=== PATIENT | male | born 1975 | race Hispanic/Latino ===

== ENCOUNTER 2020-05-28 15:30 | Inpatient (IN) | payer OTHER, SELFPAY ==
[~2020-05-28] VITALS: Ht 170.2 cm; Wt 83.9 kg
[2020-05-28 16:28] LABS: BASOPHILS % (AUTO) 0.4 % (0.0-5.0); EOSINOPHILS % (AUTO) 1.1 % (0.0-8.0); HEMATOCRIT 37.7 % (42-54); MEAN CORPUSCULAR HEMOGLOBIN 33.2 pg (27.0-33.0); MEAN CORPUSCULAR HGB CONC 34.5 g/dL (32.0-36.0); MEAN CORPUSCULAR VOLUME 96.4 fL (79-99); NEUTROPHILS % (AUTO) 74.7 % (40.0-77.0); PLATELET COUNT (AUTO) 415 K/uL (130-400); RED BLOOD CELL COUNT(AUTO) 3.91 MIL/uL (4.50-6.20); RED CELL DISTRIBUTION WIDTH 12.8 % (11.0-15.5); WHITE BLOOD COUNT (AUTO) 11.3 K/uL (4.8-10.8)
[2020-05-28 16:48] LABS: ALBUMIN 3.1 g/dL (3.5-5.0); BILIRUBIN,TOTAL 0.6 mg/dL (0.2-1.0); CREATININE 1.3 mg/dL (0.5-1.5); POTASSIUM 4.6 mmol/L (3.5-5.1); TOTAL PROTEIN, SERUM 8.9 g/dL (6.0-8.3)
[2020-05-28] MEDS ORDERED: 0.9%NACL 1000ML 1,000 ML IV ONE ×2 (17:39→21:27)
[2020-05-28] MEDS ORDERED: ZOSYN 3.375GM+NS 50ML 50 ML IV ONE (17:40)
[2020-05-28] MEDS ORDERED: MORPHINE 4 MG SYG ONE (17:40)
[2020-05-28] MEDS ORDERED: ONDANSETRON 4MG INJ ONE (17:40)
[2020-05-28] MEDS ORDERED: INSULIN HUMULIN R 100 UNIT/ML 3ML ONE ×2 (17:41→21:48)
[2020-05-28] MEDS ORDERED: IOHEXOL-350 75 ML VIAL IV ONE (17:51)
[2020-05-28] MEDS ORDERED: VANCOMYCIN 1G/250ML KIT 250 ML IV ONE (19:12)
[2020-05-28] MEDS ORDERED: ACETAMINOPHEN 325 MG TAB PO PRN ×2 (21:00)
[2020-05-28] MEDS ORDERED: VANCOMYCIN PROTOCOL PER PHARMACY IV PRN (21:00)
[2020-05-28] MEDS: INSULIN GLARGINE 100 UNITS/ML 10 ML VIAL SQ SCH (21:00)
[2020-05-28] MEDS ORDERED: LACTULOSE 20 GM/30 ML UDCUP PO PRN (21:00)
[2020-05-28] MEDS ORDERED: VANCOMYCIN 1G/250ML KIT 250 ML IV SCH (21:00)
[2020-05-28] MEDS ORDERED: ONDANSETRON 4MG INJ IV PRN (21:00)
[2020-05-28] MEDS ORDERED: MORPHINE 4 MG SYG IV PRN (21:00)
[2020-05-28 21:22] LABS: PHOSPHORUS 4.2 mg/dL (2.5-4.9)
[2020-05-28 21:26] LABS: HEMOGLOBIN A1C 13.1 % (4.0-6.0)
[2020-05-28] MEDS ORDERED: FAMOTIDINE 20MG VIAL IV ONE (21:29)
[2020-05-28] MEDS ORDERED: ENOXAPARIN SODIUM 40 MG/0.4 ML SYRINGE SQ ONE (21:29)
[2020-05-28] MEDS ORDERED: COMPOUND IV REFRIGERATED 1 EACH IVSOLN MISC PRN (21:45)
[2020-05-29] MEDS ORDERED: ZOSYN 3.375GM+NS 50ML 50 ML IV ONE ×2 (03:39→13:26)
[2020-05-29] MEDS: ZOSYN 3.375GM+NS 50ML 50 ML IV SCH ×3 (05:00→21:00)
[2020-05-29] MEDS ORDERED: 0.9%NACL 1000ML 1,000 ML IV ONE ×2 (05:58→18:44)
[2020-05-29] MEDS ORDERED: INSULIN HUMULIN R 100 UNIT/ML 3ML ONE ×3 (05:58→18:44)
[2020-05-29] MEDS ORDERED: FAMOTIDINE 20MG VIAL IV ONE (07:54)
[2020-05-29] MEDS: 0.9%NACL 1000ML 1,000 ML IV SCH ×2 (08:03→16:03)
[2020-05-29] MEDS: FAMOTIDINE 20MG VIAL IV SCH ×2 (09:00→21:00)
[2020-05-29] MEDS ORDERED: VANCOMYCIN 1G/250ML KIT 250 ML IV ONE (11:32)
[2020-05-29] MEDS: INSULIN HUMULIN R 100 UNIT/ML 3ML SQ SCH (16:00)
[2020-05-29 20:01] VITALS: BP 138/93
[2020-05-29] MEDS: VANCOMYCIN 1G 1.25 GM in 0.9% NACL 250ML 250 ML IV SCH (21:00)
[2020-05-29] MEDS: INSULIN GLARGINE 100 UNITS/ML 10 ML VIAL SQ SCH (21:00)
[2020-05-30] VITALS (7 sets, daily range): BP systolic 127–152; BP diastolic 91–100
[2020-05-30] MEDS: 0.9%NACL 1000ML 1,000 ML IV SCH ×2 (00:03→01:24)
[2020-05-30] MEDS: FAMOTIDINE 20MG VIAL IV SCH ×3 (01:15→22:01)
[2020-05-30] MEDS: ZOSYN 3.375GM+NS 50ML 50 ML IV SCH (01:16)
[2020-05-30] MEDS: VANCOMYCIN 1G 1.25 GM in 0.9% NACL 250ML 250 ML IV SCH ×3 (01:16→22:10)
[2020-05-30] MEDS: ENOXAPARIN SODIUM 40 MG/0.4 ML SYRINGE SQ SCH (09:00)
[2020-05-30 19:29] LABS: BASOPHILS % (AUTO) 0.5 % (0.0-5.0); EOSINOPHILS % (AUTO) 2.3 % (0.0-8.0); HEMATOCRIT 34.9 % (42-54); LYMPHOCYTES % (AUTO) 22.8 % (21.0-51.0); MEAN CORPUSCULAR HEMOGLOBIN 33.2 pg (27.0-33.0); MEAN CORPUSCULAR HGB CONC 34.7 g/dL (32.0-36.0); MEAN CORPUSCULAR VOLUME 95.6 fL (79-99); MONOCYTES % (AUTO) 9.4 % (3.0-13.0); NEUTROPHILS % (AUTO) 64.2 % (40.0-77.0); PLATELET COUNT (AUTO) 385 K/uL (130-400); RED BLOOD CELL COUNT(AUTO) 3.65 MIL/uL (4.50-6.20); RED CELL DISTRIBUTION WIDTH 13.1 % (11.0-15.5); WHITE BLOOD COUNT (AUTO) 7.6 K/uL (4.8-10.8)
[2020-05-30 19:38] LABS: POTASSIUM 4.2 mmol/L (3.5-5.1)
[2020-05-30 19:41] LABS: INR 1.1 (0.85-1.15); PROTHROMBIN TIME 11.9 SEC (9.6-11.6)
[2020-05-30 19:42] LABS: PARTIAL THROMBOPLASTIN TIME 24.3 SEC (26.3-35.5)
[2020-05-30] MEDS: INSULIN GLARGINE 100 UNITS/ML 10 ML VIAL SQ SCH (21:00)
[2020-05-31] VITALS (18 sets, daily range): BP systolic 113–153; BP diastolic 70–103
[2020-05-31] MEDS: 0.9%NACL 1000ML 1,000 ML IV SCH (00:44)
[2020-05-31] MEDS: ZOSYN 3.375GM+NS 50ML 50 ML IV SCH ×3 (06:17→21:09)
[2020-05-31] MEDS: ENOXAPARIN SODIUM 40 MG/0.4 ML SYRINGE SQ SCH (09:00)
[2020-05-31] MEDS: VANCOMYCIN 1G 1.25 GM in 0.9% NACL 250ML 250 ML IV SCH ×2 (09:21→21:13)
[2020-05-31] MEDS: FAMOTIDINE 20MG VIAL IV SCH ×2 (09:21→21:09)
[2020-05-31] MEDS ORDERED: SUCCINYLCHOLINE CHLORIDE 20 MG/ML 10 ML VIAL ONE (13:52)
[2020-05-31] MEDS ORDERED: LIDOCAINE PF 100MG/5ML (2%) SYRINGE 5ML ONE (13:52)
[2020-05-31] MEDS ORDERED: DEXAMETHASONE SOD PHOSPHATE 10MG/ML 1ML VIAL ONE (13:52)
[2020-05-31] MEDS ORDERED: MIDAZOLAM HCL 1 MG/ML 2ML VIAL ONE ×2 (13:53→15:13)
[2020-05-31] MEDS ORDERED: GLYCOPYRROLATE 1 MG/5 ML SYRINGE ONE (13:54)
[2020-05-31] MEDS ORDERED: FENTANYL CITRATE PF 50 MCG/1 ML 2ML VIAL ONE (13:54)
[2020-05-31] MEDS ORDERED: ONDANSETRON 4MG INJ ONE (13:54)
[2020-05-31] MEDS ORDERED: NEOSTIGMINE 5MG/5ML SYR IV ONE (13:54)
[2020-05-31] MEDS ORDERED: ROCURONIUM 10MG/1ML SYR 10 MG/ML ML ONE (13:54)
[2020-05-31] MEDS ORDERED: PROPOFOL 10 MG/ML 20ML VIAL IV ONE ×2 (13:54→15:27)
[2020-05-31] MEDS ORDERED: LIDOCAINE 1%-EPI 1:100,000 20 ML VIAL IJ ONE (15:05)
[2020-05-31] MEDS ORDERED: MEPERIDINE-PF 25 MG/ML SYG ONE (15:49)
[2020-05-31] MEDS: INSULIN HUMULIN R 100 UNIT/ML 3ML SQ SCH ×2 (21:06)
[2020-05-31] MEDS: INSULIN GLARGINE 100 UNITS/ML 10 ML VIAL SQ SCH (21:07)
[2020-05-31] MEDS ORDERED: INSULIN GLARGINE 100 UNITS/ML 10 ML VIAL SQ ONE (23:00)
[2020-06-01] VITALS: BP 133/96
[2020-06-01] MEDS: 0.9%NACL 1000ML 1,000 ML IV SCH ×3 (00:03→23:20)
[2020-06-01] MEDS: MORPHINE 2 MG SYG IV PRN ×2 (03:05→21:22)
[2020-06-01 04:00] VITALS: BP 145/96
[2020-06-01 04:58] LABS: BASOPHILS % (AUTO) 0.7 % (0.0-5.0); EOSINOPHILS % (AUTO) 3.5 % (0.0-8.0); HEMATOCRIT 35.2 % (42-54); MEAN CORPUSCULAR HEMOGLOBIN 32.4 pg (27.0-33.0); MEAN CORPUSCULAR HGB CONC 33.8 g/dL (32.0-36.0); MEAN CORPUSCULAR VOLUME 95.9 fL (79-99); MONOCYTES % (AUTO) 9.6 % (3.0-13.0); NEUTROPHILS % (AUTO) 57.3 % (40.0-77.0); PLATELET COUNT (AUTO) 407 K/uL (130-400); RED BLOOD CELL COUNT(AUTO) 3.67 MIL/uL (4.50-6.20); RED CELL DISTRIBUTION WIDTH 12.9 % (11.0-15.5); WHITE BLOOD COUNT (AUTO) 7.7 K/uL (4.8-10.8)
[2020-06-01 05:21] LABS: ALBUMIN 2.6 g/dL (3.5-5.0); BILIRUBIN,TOTAL 0.4 mg/dL (0.2-1.0); TOTAL PROTEIN, SERUM 7.5 g/dL (6.0-8.3)
[2020-06-01] MEDS: ZOSYN 3.375GM+NS 50ML 50 ML IV SCH ×3 (05:52→20:07)
[2020-06-01 08:00] VITALS: BP 121/90
[2020-06-01] MEDS: INSULIN HUMULIN R 100 UNIT/ML 3ML SQ SCH ×6 (08:11→21:12)
[2020-06-01] MEDS: ENOXAPARIN SODIUM 40 MG/0.4 ML SYRINGE SQ SCH (08:17)
[2020-06-01] MEDS: FAMOTIDINE 20MG VIAL IV SCH ×2 (08:18→20:08)
[2020-06-01] MEDS: VANCOMYCIN 1G 1.25 GM in 0.9% NACL 250ML 250 ML IV SCH ×2 (08:18→20:08)
[2020-06-01 12:32] VITALS: BP 129/94
[2020-06-01 16:00] VITALS: BP 129/89
[2020-06-01 20:01] VITALS: BP 135/93
[2020-06-01] MEDS ORDERED: INSULIN GLARGINE 100 UNITS/ML 10 ML VIAL SQ SCH (21:00)
[2020-06-02] VITALS (7 sets, daily range): BP systolic 122–148; BP diastolic 85–95
[2020-06-02] MEDS: ZOSYN 3.375GM+NS 50ML 50 ML IV SCH (04:38)
[2020-06-02 05:53] LABS: BASOPHILS % (AUTO) 0.9 % (0.0-5.0); EOSINOPHILS % (AUTO) 4.3 % (0.0-8.0); HEMATOCRIT 35.6 % (42-54); LYMPHOCYTES % (AUTO) 35.5 % (21.0-51.0); MEAN CORPUSCULAR HEMOGLOBIN 32.3 pg (27.0-33.0); MEAN CORPUSCULAR HGB CONC 33.4 g/dL (32.0-36.0); MEAN CORPUSCULAR VOLUME 96.7 fL (79-99); MONOCYTES % (AUTO) 10.4 % (3.0-13.0); NEUTROPHILS % (AUTO) 48.3 % (40.0-77.0); PLATELET COUNT (AUTO) 427 K/uL (130-400); RED BLOOD CELL COUNT(AUTO) 3.68 MIL/uL (4.50-6.20); RED CELL DISTRIBUTION WIDTH 12.8 % (11.0-15.5); WHITE BLOOD COUNT (AUTO) 6.5 K/uL (4.8-10.8)
[2020-06-02 06:13] LABS: ALBUMIN 2.5 g/dL (3.5-5.0); BILIRUBIN,TOTAL 0.3 mg/dL (0.2-1.0); POTASSIUM 4.2 mmol/L (3.5-5.1); TOTAL PROTEIN, SERUM 7.5 g/dL (6.0-8.3)
[2020-06-02] MEDS: INSULIN HUMULIN R 100 UNIT/ML 3ML SQ SCH ×5 (06:34→17:09)
[2020-06-02] MEDS: FAMOTIDINE 20MG VIAL IV SCH (09:23)
[2020-06-02] MEDS: ENOXAPARIN SODIUM 40 MG/0.4 ML SYRINGE SQ SCH (09:23)
[2020-06-02] MEDS: VANCOMYCIN 1G 1.25 GM in 0.9% NACL 250ML 250 ML IV SCH (09:31)
[2020-06-02] MEDS ORDERED: METRONIDAZOLE 500 MG TABLET PO SCH ×2 (12:30→21:00)
[2020-06-02] MEDS ORDERED: CEPHALEXIN 500 MG CAPSULE PO SCH ×2 (12:30→21:00)
[2020-06-02] MEDS ORDERED: METR500T PO (14:49)
[2020-06-02] MEDS ORDERED: CEPH500T PO (14:49)
[2020-06-02] MEDS ORDERED: METF-444 PO ×2 (16:10→16:20)
== END 2020-06-02 17:35 | disposition home or self-care (01) | DRG 854 ==
LOC: EDH 15:30 → EDHIP 15:31 → 4DH 05-29 19:19
PROVIDERS: ADMIT Internal Medicine; ATTEND Internal Medicine
PROC: 0J9C0ZZ Drainage of Pelvic Region Subcutaneous Tissue and Fascia, Open Approach (ICD-10-PCS; principal; 2020-05-31 15:09)
DX: A41.9 Sepsis, unspecified organism (principal); E87.1 Hypo-osmolality and hyponatremia; L02.214 Cutaneous abscess of groin; L02.211 Cutaneous abscess of abdominal wall; M47.815 Spondylosis without myelopathy or radiculopathy, thoracolumbar region; F17.210 Nicotine dependence, cigarettes, uncomplicated; E66.9 Obesity, unspecified; R59.0 Localized enlarged lymph nodes; Z20.822 Contact with and (suspected) exposure to COVID-19; E27.8 Other specified disorders of adrenal gland; B96.89 Other specified bacterial agents as the cause of diseases classified elsewhere; E11.65 Type 2 diabetes mellitus with hyperglycemia; Z91.19 Patient's noncompliance with other medical treatment and regimen; Z79.84 Long term (current) use of oral hypoglycemic drugs; Z71.6 Tobacco abuse counseling
CPT/HCPCS: 36415; 74177; 80048; 80053; 82948; 83036; 83605; 83735; 84100; 84145; 85025; 85610; 85730; 86140; 87040; 87070; 87076; 87205; 87426; 99291; G0378; J0330; J1100; J1650; J1815; J2001; J2175; J2250; J2270; J2405; J2543; J2704; J2710; J3010; J3370; J3490; J7030; J7050; Q9967; U0003

== ENCOUNTER 2023-02-16 16:36 | Emergency (ER) | payer OTHER ==
[~2023-02-16] VITALS: Ht 170.2 cm; Wt 104.3 kg
[~2023-02-16 16:36] MED LIST: CEPH500T PO; METF-444 PO; METR500T PO
[2023-02-16 16:37] VITALS: BP 167/100; PULSE 90; RESP 18
[2023-02-16] MEDS ORDERED: IBUP-2070 PO (18:43)
[2023-02-16] MEDS ORDERED: SULF1TAB42 PO (18:43)
[2023-02-16] MEDS ORDERED: SULFAMETHOX-TMP DS 800/160 TAB PO ONE (19:00)
== END 2023-02-16 19:12 | disposition home or self-care (01) ==
LOC: EDH 16:36
DX: L02.416 Cutaneous abscess of left lower limb (principal); E11.9 Type 2 diabetes mellitus without complications; Z79.84 Long term (current) use of oral hypoglycemic drugs; Z79.899 Other long term (current) drug therapy; Z98.890 Other specified postprocedural states
CPT/HCPCS: 10060

== ENCOUNTER 2023-05-29 12:53 | Emergency (ER) | payer OTHER ==
[~2023-05-29] VITALS: Ht 170.2 cm; Wt 83.9 kg
[~2023-05-29 12:53] MED LIST changes: +IBUP-2070 PO; +SULF1TAB42 PO
[2023-05-29 13:30] VITALS: BP 166/100; PULSE 105; RESP 18; O2SAT 98
[2023-05-29] MEDS ORDERED: IBUP-2070 PO (15:02)
[2023-05-29] MEDS ORDERED: METH-811 PO (15:07)
[2023-05-29] MEDS ORDERED: NEO/3.5O OD (15:07)
== END 2023-05-29 15:14 | disposition home or self-care (01) ==
LOC: EDH 12:53
DX: S39.012A Strain of muscle, fascia and tendon of lower back, initial encounter (principal); V89.2XXA Person injured in unspecified motor-vehicle accident, traffic, initial encounter; Y93.89 Activity, other specified; Y92.89 Other specified places as the place of occurrence of the external cause; Y99.8 Other external cause status
CPT/HCPCS: 72040; 72100; 73590